=== PATIENT | male | born 1965 | race Caucasian/White ===

== ENCOUNTER → 2021-02-13 20:14 | Outpatient (CLI) | payer OTHER, SELFPAY | PROVIDERS: PCP Family Medicine; Visit Provider Family Medicine | DX: G47.10 Hypersomnia, unspecified (principal) | CPT/HCPCS: 95810 ==

== ENCOUNTER 2021-04-03 20:00 | Outpatient (CLI) | payer OTHER, SELFPAY | END 2021-04-03 23:59 | disposition short-term general hospital (02) | PROVIDERS: PCP Family Medicine; Referring Provider Family Medicine; Visit Provider Family Medicine | DX: G47.33 Obstructive sleep apnea (adult) (pediatric) (principal) | CPT/HCPCS: 95811 ==

== ENCOUNTER → 2021-07-16 | Outpatient (CLI) | payer OTHER, SELFPAY | END | disposition home or self-care (01) | LOC: SL 07-21 12:54 | PROVIDERS: PCP Family Medicine; Visit Provider Family Medicine | DX: Z00.00 Encounter for general adult medical examination without abnormal findings (principal) ==

== ENCOUNTER → 2021-09-22 | Outpatient (CLI) | payer OTHER, SELFPAY ==
[2021-09-22 12:17] LABS: Absolute Lymphocyte Count 1.72 X10^3/uL (0.83-4.51); Absolute Neutrophil Count 3.3 X10^3/uL (2.0-7.7); Basophil# 0.02 X10^3/uL; Basophil% 0.3 % (0-1); Eosinophil# 0.18 X10^3/uL; Eosinophils% 3.1 % (0-5); Hematocrit 39.4 % (40-54); Lymphocyte # 1.72 X10^3/ul (0.83-4.51); Lymphocyte % 29.8 % (19-41); Mean Corpuscular Hgb 30.2 pg (27.0-32.0); Mean Corpuscular Volume 91.6 fL (80-94); Mean Platelet Vol. 10.7 fl (6.2-12.0); Monocyte# 0.51 X10^3/uL; Monocyte% 8.8 % (0-10); NRBC Flagged by Analyzer 0 % (0-5); Neutrophil # 3.34 X10^3/uL (2.7-7.7); Neutrophil % 57.8 % (47-70); Platelet Count 237 K/mm3 (150-450); RBC Distribution Width CV 12.1 % (11.6-14.6); RBC Distribution Width SD 40.5 fl (35.1-43.9); White Blood Count 5.8 K/mm3 (4.4-11.0)
[2021-09-22 12:47] LABS: ALB/GLOB Ratio 1.3 RATIO (0.9-2.4); AST(SGOT) 15 U/L (15-37); Alanine Aminotransfer ALT/SGPT 26 U/L (16-61); Albumin, Serum 3.9 g/dL (3.2-5.0); Alkaline Phosphatase 99 U/L (45-117); Anion Gap 7 (5-15); BUN 15 mg/dL (7-18); BUN/Creat Ratio 16.6 RATIO (10-20); Calcium,Total 8.7 mg/dL (8.5-10.1); Chloride 107 mmol/L (98-107); Cholesterol 170 mg/dL (200); Creatinine, Serum 0.91 mg/dL (0.70-1.30); EST Glomerular Filtration Rate 92 mL/min (>60); Est Glom Filt Rate - Afr Amer 111 mL/min (>60); Globulin 3.1 g/dL (2.2-4.2); Glucose 99 mg/dL (74-106); High Density Lipoprotein 48 mg/dL; PSA,Total - Annual Screen 0.83 ng/mL (0.00-4.00); Potassium 3.6 mmol/L (3.5-5.1); Sodium Level 140 mmol/L (136-145); Triglycerides 55 mg/dL; Very Low Density Lipoprotein 11 mg/dL (5-40)
[2021-09-22 12:51] LABS: Microalbumin,Random Urine 82.8 mg/L (NO RANGE EST.); Microalbumin:Creatinine Ratio 62.7 mg/g CRE (<30 mg/g CRE)
== END | disposition home or self-care (01) ==
LOC: MTLAB 10:50
PROVIDERS: PCP Family Medicine; Referring Provider Family Medicine; Visit Provider Family Medicine
DX: Z00.00 Encounter for general adult medical examination without abnormal findings (principal); Z12.5 Encounter for screening for malignant neoplasm of prostate
CPT/HCPCS: 36415; 80053; 80061; 82043; 82570; 84153; 85025; G0103

== ENCOUNTER → 2021-12-08 | Outpatient (CLI) | payer OTHER, SELFPAY ==
--- NOTE | 2021-12-08 11:24 | RAD_ITS ---
STUDY: X-RAY - RIGHT HAND, ATTENTION FIRST FINGER REASON FOR EXAM: Male, 56 years old. Thumb pain. TECHNIQUE: 3 view(s) of the finger were obtained. COMPARISON: None. FINDINGS: Osteopenia. Mild arthrosis of the first CMC joint. Mild arthrosis of the MCP and IP joint. Soft tissue swelling over the distal phalanx. 3 mm in diameter soft tissue calcification on the radial side of the first digit adjacent to the distal aspect of the proximal phalanx. RAD/Finger(s) Min 2 Views IMPRESSION: Osteopenia with osteoarthritic changes. Small soft tissue calcification as described. No acute abnormality or erosive changes. Electronically Signed: Serg Jiang, at 13:59 EDT ,
== END | disposition home or self-care (01) ==
LOC: MTRAD 11:21
PROVIDERS: PCP Family Medicine; Referring Provider Family Medicine; Visit Provider Family Medicine
DX: M18.11 Unilateral primary osteoarthritis of first carpometacarpal joint, right hand (principal)
CPT/HCPCS: 73140

== ENCOUNTER → 2023-01-19 | Outpatient (CLI) | payer OTHER, SELFPAY ==
[2023-01-19 12:16] LABS: Absolute Lymphocyte Count 1.83 X10^3/uL (0.83-4.51); Absolute Neutrophil Count 3.3 X10^3/uL (2.0-7.7); Basophil# 0.05 X10^3/uL; Basophil% 0.8 % (0-1); Eosinophil# 0.16 X10^3/uL; Eosinophils% 2.7 % (0-5); Hematocrit 44.5 % (40-54); Hemoglobin 14.5 g/dL (13.0-16.5); Lymphocyte # 1.83 X10^3/ul (0.83-4.51); Lymphocyte % 30.7 % (19-41); Mean Corp Hgb Conc 32.6 g/dL (32-36); Mean Corpuscular Hgb 29.9 pg (27.0-32.0); Mean Corpuscular Volume 91.8 fL (80-94); Mean Platelet Vol. 10.9 fl (6.2-12.0); Monocyte# 0.58 X10^3/uL; Monocyte% 9.7 % (0-10); NRBC Flagged by Analyzer 0 % (0-5); Neutrophil # 3.33 X10^3/uL (2.7-7.7); Neutrophil % 55.8 % (47-70); Platelet Count 221 K/mm3 (150-450); RBC Distribution Width CV 12.7 % (11.6-14.6); RBC Distribution Width SD 42.5 fl (35.1-43.9); Red Blood Count 4.85 M/mm3 (4.6-6.2)
[2023-01-19 12:43] LABS: ALB/GLOB Ratio 1.1 RATIO (0.9-2.4); AST(SGOT) 12 U/L (15-37); Alanine Aminotransfer ALT/SGPT 23 U/L (16-61); Albumin, Serum 3.8 g/dL (3.2-5.0); Alkaline Phosphatase 129 U/L (45-117); Anion Gap 6 (5-15); BUN 16 mg/dL (7-18); BUN/Creat Ratio 17.9 RATIO (10-20); Calcium,Total 8.5 mg/dL (8.5-10.1); Chloride 108 mmol/L (98-107); Cholesterol 206 mg/dL (200); EST Glomerular Filtration Rate 92 mL/min (>60); Est Glom Filt Rate - Afr Amer 112 mL/min (>60); Globulin 3.5 g/dL (2.2-4.2); Glucose 103 mg/dL (74-106); High Density Lipoprotein 62 mg/dL; Magnesium 2.2 mg/dL (1.6-2.6); PSA,Total - Annual Screen 1.13 ng/mL (0.00-4.00); Potassium 3.6 mmol/L (3.5-5.1); Protein, Total 7.3 g/dL (6.4-8.2); Sodium Level 141 mmol/L (136-145); Thyroid Stim Hormone (TSH) 2.18 uIU/mL (0.358-3.74); Triglycerides 60 mg/dL; Very Low Density Lipoprotein 12 mg/dL (5-40)
== END | disposition home or self-care (01) ==
LOC: BFHLAB 10:28
PROVIDERS: PCP Family Medicine; Visit Provider Family Medicine
DX: Z00.00 Encounter for general adult medical examination without abnormal findings (principal); I48.91 Unspecified atrial fibrillation; Z12.5 Encounter for screening for malignant neoplasm of prostate
CPT/HCPCS: 36415; 80053; 80061; 83735; 84153; 84443; 85025; G0103

== ENCOUNTER → 2023-03-29 | Outpatient (CLI) | payer OTHER, SELFPAY ==
--- OUTSIDE RECORDS SUMMARY | 2023-03-29 15:20 | XMS RPT_ITS | CCD ---
Author Name Unknown Address [address] [place] [address] Organization [facility] Care Team Providers Care Gas System Operator Name Role Phone POLO GONZALEZ Unavailable Unavailable POLO GONZALEZ Unavailable Unavailable POLO GONZALEZ Unavailable Unavailable Problems Problem Classification Problem Date Documented Da te Episodic/Chronic Essential hypertension (1 source) Essential (primary) hypertension; Translations: [Essential (primary) hypertension] Onset: 02-25-2017 Chronic Results Test Name Value Interpretation Reference Range Facil ity Encounters Encounter Date Encounter Type Care Provider Facility Start: 02-25-2017 End: 02-25-2017 Ambulatory POLO GONZALEZ [facility] Payers Date Payer Category Payer Policy ID Unknown [id number] Progress note 09-02-2020 Note Date & Type Note Facility 09-02-2020 Note HNO ID: [id number] Author: RT Iram(R) Service: Radiology Author Type: Spindle Setter Type: Progress Notes Filed: 09/02/2020 2:11 PM Note Text: Radiology Service Progress Note PATIENT NAME: Antonio Hernadez DATE OF SERVICE: September 02, 2020 TIME: 2:11 PM PATIENT IDENTITY VERIFICATION COMPLETED USING TWO (2) IDENTIFIERS: Name and Date of confirmed by patient verbally. FALL SCREENING: Has the patient had 2 falls in the last year or 1 fall with injury or currently using an Ambulatory Assistive Device (Walker, Cane, Wheelchair, Crutches, etc.)? No PATIENT GENDER DATA: Male PATIENT RELEVANT IMPLANT DATA REVIEWED: Not Applicable RADIOLOGY DEPARTMENT: General X-ray: Exam(s) Completed: Spine X-Ray(s): Lumbar AP / LAT / L5-S1 Pelvis X-Ray: Pelvis with Hip Left PERIPHERAL IV DATA: Not applicable SIGNED BY: RT Iram(R) September 02, 2020 2:11 PM [facility] Progress note 09-02-2020 Note Date & Type Note Facility 09-02-2020 Note HNO ID: [id number] Author: Merrick Huerta APRN.VETERINARIAN ASSISTANT Service: ? Author Type: Nurse Practitioner Type: Progress Notes Filed: 09/08/2020 8:05 AM Note Text: CC: Patient presents with: Establish Care: Establishing Care HPI Antonio Hernadez is a 55 year old male who presents today to establish care. Previous PCP: Medical hx: HTN Specialist: Nephrology [phone] Complains of leg cramps since starting diuretic. Started in March by specialists- Pain is manageable until he developed left hip pain. Left hip- Can be severe enough that it wakes him from sleep. Pain radiates from hip sometimes to the ankle/foot. Difficulty with lifting the foot- notes having to concentrate with walking. Numbness to the top of the foot/ankle with occasional tingling. Improves with walking takes 2-3 hours first thing in the morning. Deep pain. Previously followed with chiropractor No known injury. No previous imaging. HTN: Checking BP at home: 127/86 89 prior to his appointment 130/83 74 last evening January follow up scheduled with nephrology Notes episodes where he feels he cannot catch his breath lasting up to 15 seconds. Occurring 3x per week. No cough, wheeze, chest pain or palpitations. Intermittent BLE edema. REVIEW OF SYSTEMS General: no fevers, no chills, no change in energy and no significant changes in weight HEENT: no frequent or significant headaches, no visual changes Respiratory: no cough, no wheezing, See HPI Cardiovascular: no chest pain, no chest pressure, no palpitations and See HPI GI: No nausea, vomiting. +intermittent diarrhea : No history of dysuria, frequency or incontinence Musculoskeletal: see HPI See HPI PAST MEDICAL HISTORY Diagnosis Date - Erectile dysfunction - HTN (hypertension) - Hyperkalemia - LVH (left ventricular hypertrophy) - Paroxysmal supraventricular tachycardia (HCC) No past surgical history on file. ALLERGIES Ciprofloxacin MEDICATIONS losartan (COZAAR) 100 mg tablet Take 100 mg by mouth once daily. carvedilol (COREG) 6.25 mg tablet Take 6.25 mg by mouth twice daily with meals. POTASSIUM CHLORIDE ORAL Take 20 mEq by mouth once daily. chlorthalidone (HYGROTON) 25 mg tablet Take 25 mg by mouth once daily. No family history on file. Social History Tobacco Use - Smoking status: Not on file Substance Use Topics - Alcohol use: Not on file - Drug use: Not on file PHYSICAL EXAM BP 142/98 Pulse 94 Temp 36.5 ?C (97.7 ?F) (Temporal) Resp 16 Wt 96.2 kg (212 lb) SpO2 98% General Appearance: well appearing, in no acute distress, alert Pysch: mood and affect flat and restricted Skin: Skin color, texture, turgor normal for age; Head: normocephalic, atraumatic Eyes: PERRLA, EOM's intact, conjunctiva pink and moist, no icterus, sclera white, non-injected Ears: external ears normal to inspection and palpation, canals clear, Left tympanic membrane normal. , Right tympanic membrane normal Lungs: Lungs clear to auscultation. No wheezing, rhonchi, rales. Heart: RRR without murmur, gallop, or rubs. No ectopy Abdomen: Abdomen soft, non-tender. Bowel sounds normal. No masses, organomegaly Bilateral Lower Extremities: no edema DEPRESSION SCREENING Never done COVID-19 VACCINE(1) Never done HEPATITIS C SCREENING Never done HIV SCREENING Never done DTAP,TDAP,TD(1 - Tdap) Never done LIPID SCREEN Never done DIABETES SCREEN Never done SHINGRIX VACCINE(1 of 2) Never done PROSTATE CANCER SCREENING DISCUSSION Never done INFLUENZA(Season Ended) due on 11/12/2020 COLORECTAL CANCER SCREENING due on 02/27/2023 MENINGOCOCCAL CONJUGATE Aged Out ASSESSMENT/PLAN: 1. Encounter for medical examination to establish care - ICD9: V70.9, ICD10: Z00.00 (primary diagnosis) - Recommended regular aerobic exercise. - Check labs as ordered - Follow up for annual exam in one year. 2. Leg cramps - ICD9: 729.82, ICD10: R25.2 - CBC + DIFF (FOR REMOTE [facility] USE) - TIBC PANEL (IRON) (FOR REMOTE [facility] USE) - FERRITIN (FERR) (FOR REMOTE [facility] USE) - MAGNESIUM (MG1) (FOR REMOTE [facility] USE) 3. Essential hypertension - ICD9: 401.9, ICD10: I10 - suboptimal control - Continue current medication(s) - Recommended regular aerobic exercise. - Recommend home blood pressure monitoring, to bring results in on next visit - Follow up in 1 month for BP recheck. - Goal of BP <130/80 - Recommended no refined sugar, low refined starch, healthy oil intake (olive oil), healthy protein (fish) along the lines of the Mediterranean diet. - BMP (BMP) (FOR REMOTE [facility] USE) - LIPID PANEL (LIPB) (FOR REMOTE [facility] USE) 4. Acute left-sided low back pain with left-sided sciatica - ICD9: 724.2, 724.3, ICD10: M54.42 - XR LUMBAR GENERAL 3V AP/LAT/L5-S1 5. Left hip pain - ICD9: 719.45, ICD10: M25.552 - XR HIP GENERAL 3V PELV/AP/LAT LT 6. Diarrhea, unspecified type - ICD9: 787.91, ICD10: R19.7 - BMP (BMP) (FOR REMOTE [facility] (more content not included)... [facility] Summary Purpose Family History No Family History Records FoundNo Family History Records FoundNo Family History Records Found Advance Directives No Advanced Directives Records FoundNo Advanced Directives Records FoundNo Advanced Directives Records Found Additional Source Comments (unrecognized sect ion and content) No Status Records FoundNo Status Records FoundNo Status Records Found INFORMATION SOURCE (unrecogn ized section and content) DATE CREATED AUTHOR AUTHOR'S ORGANIZ ATION 01/16/2020 [facility] DATE CREATED AUTHOR AUTHOR'S ORGANIZ ATION 04/15/2021 [facility] FOR RECORDS PERTAINING TO PATIENTS WHO ARE OR HAVE BEEN ENROLLED IN A CHEMICAL DEPENDENCY/SUBSTANCEABUSE PROGRAM, SOME INFORMATION MAY BE OMITTED. This clinical summary was aggregated from multiple sources. Caution should be exercised in using it in the provision of clinical care. This summary normalizes information from multiple sources, and as a consequence, information in this document may materially change the coding, format and clinical context of patient data. In addition, data may be omitted in some cases. CLINICAL DECISIONS SHOULD BE BASED ON THE PRIMARY CLINICAL RECORDS. [facility]. provides no warranty or guarantee of the accuracy or completeness of information in this document.
== END | disposition home or self-care (01) ==
LOC: PSN 13:39
PROVIDERS: PCP Family Medicine; Referring Provider Family Medicine; Visit Provider Family Medicine
DX: I48.91 Unspecified atrial fibrillation (principal)
CPT/HCPCS: 93225; 93226

== ENCOUNTER → 2023-06-09 | Outpatient (CLI) | payer OTHER, SELFPAY ==
--- NOTE | 2023-06-09 13:28 | STE_ITS ---
Reason For Study: Chest Pain Stress Results Protocol: Bubba Protocol Maximum Predicted HR: 161 bpm Target HR: 137 bpm % Maximum Predicted HR: 96 % DurationHeart Rate Stage (mm:ss) (bpm) BP Comment Baseline 69 146/78No Chest Pain Bubba Protocol Stage I 3:00 112 162/80No Chest Pain Bubba Protocol Stage II 3:00 125 174/82No Chest Pain Bubba Protocol Stage III 3:00 137 198/78Mild Chest Tightness Bubba Protocol Stage IV 1:00 155 / Mild Chest Tightness Recovery 99 146/78No Chest Pain Stress Duration: 10:00 mm:ss Maximum Stress HR: 155 bpm METS: 13 Baseline Echocardiogram Findings Stress Echo Wall motion Data Resting WM Intermediate WM Stress WM ECHO/Stress Test Echo w/o Contrast Interpretation Summary Exercise stress echo. 58-year-old man with a history of chest pain. Stress protocol: Resting EKG demonstrates normal sinus rhythm with a rate of 71 bpm normal inter vals are noted resting blood pressure is 146/78 mmHg. Patient exercised according to regular B ruce protocol for total duration of 10 minutes completing 1 minute into stage IV of the Bubba pro tocol the maximum heart rate attained was 155 bpm which was 96% of max impacted heart rate the [facility] workload was 13.3 metabolic equivalents. At rest there were no ST or T wave changes noted francois ggest ischemia and at peak exercise upsloping ST changes were noted we did not meet the criteria for ischemia. The peak blood pressure was 198/78 which was a good blood pressure response to exercise. Patient did experience minimal chest tightness at peak exercise which dissipated rapidly. Stress echocardiogram. The resting echocardiogram demonstrated ejection fraction of 60% no wall motion abnormalities were noted. At peak exercise there was thickening of all estrada with reduction of lef t ventricular cavity size and peaking of ejection fraction of 70% with no wall motion abnormalities present. Conclusion: Exercise stress echo with no EKG criteria for ischemia at a high workload. Excellent functional capacity. No echocardiographic criteria for ischemia. Ordering Physician: Andi Mann Referring Physician: Andi Mann Performed By: Maye Stein RCS
== END | disposition home or self-care (01) ==
LOC: CVS 13:27
PROVIDERS: PCP Family Medicine; Referring Provider Internal Medicine Cardiovascular Disease; Visit Provider Internal Medicine Cardiovascular Disease
DX: R07.9 Chest pain, unspecified (principal)
CPT/HCPCS: 93017; 93350

== ENCOUNTER → 2023-09-02 | Outpatient (CLI) | payer OTHER, SELFPAY ==
[2023-09-02 18:31] LABS: ALB/GLOB Ratio 1.2 RATIO (0.9-2.4); AST(SGOT) 17 U/L (15-37); Alanine Aminotransfer ALT/SGPT 25 U/L (16-61); Alkaline Phosphatase 118 U/L (45-117); Anion Gap 9 (5-15); BUN 14 mg/dL (7-18); Chloride 110 mmol/L (98-107); Cholesterol 188 mg/dL (200); Creatinine, Serum 0.93 mg/dL (0.70-1.30); EST Glomerular Filtration Rate 88 mL/min (>60); Est Glom Filt Rate - Afr Amer 107 mL/min (>60); Globulin 3.2 g/dL (2.2-4.2); Glucose 100 mg/dL (74-106); High Density Lipoprotein 56 mg/dL; Potassium 3.5 mmol/L (3.5-5.1); Protein, Total 7.2 g/dL (6.4-8.2); Sodium Level 142 mmol/L (136-145); Triglycerides 85 mg/dL; Very Low Density Lipoprotein 17 mg/dL (5-40)
== END | disposition home or self-care (01) ==
LOC: MTLAB 14:57
PROVIDERS: PCP Family Medicine; Referring Provider Family Medicine; Visit Provider Family Medicine
DX: I10 Essential (primary) hypertension (principal)
CPT/HCPCS: 36415; 80053; 80061

== ENCOUNTER 2023-12-01 07:55 | Day surgery (SDC) | payer OTHER, SELFPAY ==
[2023-12-01] VITALS (8 sets, daily range): BP systolic 123–164; BP diastolic 79–95; PULSE 16–68; RESP 16–20; TEMP 36.7–36.8; O2SAT 97–100; BMI 27.7
--- NOTE | 2023-12-01 08:22 | PCM.HP.STD ---
[facility] - General General Date of Admission: 12/01/23 Date of Service: 12/14/23 Chief Complaint: Screening colonoscopy HPI Narrative DREW WESTFALL, is a 58 M who presents today for screening colonoscopy. He has past medical history of hypertension which is controlled medications. He has not had any any abdominal pain, cramping, nausea, vomiting or diarrhea. He denies any chest pain or shortness of breath. Overall is in very good health. [facility] Medical History (Updated 11/29/23 @ 11:18 by Gloria Ellis) Wears glasses Arthritis Back pain Injury of head and neck Non-smoker CPAP (continuous positive airway pressure) dependence Sleep apnea Normal stress echocardiogram Hypertension Cardiology follow-up encounter Tinnitus of both ears PEACE (obstructive sleep apnea) Essential hypertension Atrial fibrillation Home Medications ?Medication ?Instructions ?Recorded ?Last Taken ?Type amlodipine 5 mg tablet 5 mg PO DAILY 04/22/23 12/01/23 History carvedilol 6.25 mg tablet 6.25 mg PO BID 04/22/23 12/01/23 History losartan 100 mg tablet 100 mg PO DAILY 04/22/23 12/01/23 History multivitamin 1 tab PO DAILY 04/22/23 Unknown History sour yi extract 1,000 mg 1,000 mg PO DAILY 04/22/23 Unknown History capsule (Tart Yi Extract) capsicum (cayenne) 450 mg capsule 450 mg PO DAILY 11/08/23 Unknown History Allergy/AdvReac Type Severity Reaction Status Date / Time ciprofloxacin Allergy Rash Verified 12/01/23 08:15 MARY Inhibitors AdvReac COUGH Verified 12/01/23 08:15 chlorthalidone AdvReac muscular sx Verified 12/01/23 08:15 hydrochlorothiazide (hctz) AdvReac muscular sx Verified 12/01/23 08:15 Family History Father Myocardial infarction Hx of CABG Mother CVA (cerebral vascular accident) Surgical History (Updated 11/29/23 @ 11:18 by Gloria Ellis) Hx of wisdom tooth extraction Hx of colonoscopy History of eye surgery Social History (Updated 11/08/23 @ 11:38 by Tash Momin) household members: spouse current occupational status: employed current occupation: [employer] Smoking Status: Never smoker alcohol intake: former substance use type: does not use caffeine: No ROS Review of Systems ROS Unobtainable: other Constitutional Constitutional: Denies fatigue, fever(s), poor appetite, weight gain or weight loss ENT HEENT: Denies mouth lesions Cardiovascular Cardiovascular: Denies abdominal bloating, abdominal edema or abdominal pain Respiratory/Chest Respiratory/Chest: Denies change in mental status, change in phlegm color, chest congestion or chest tightness Gastrointestinal Gastrointestinal: Denies belching, bloating, change in bowel habits, change in stool character, chewing difficulty, coffee ground emesis, constipation, cramping, diarrhea, dyspepsia, dysphagia, early satiety, excessive flatus, fecal incontinence, heartburn, hematemesis, hematochezia, hemorrhoids, loose stools, melena, nausea, odynophagia, rectal bleeding, tenesmus, vomiting or weight changes Genitourinary Genitourinary: Denies abdominal discomfort, burning urination or itching Musculoskeletal Musculoskeletal: Reports as per HPI; Denies muscle weakness or myalgias Integumentary Integumentary: Denies jaundice Neurologic Neurologic: Denies lack of coordination or weakness Psychiatric Psychiatric: Denies confusion, depression, memory loss, mood swings, paranoia or suicidal ideation Endocrine Endocrinology: Denies systems reviewed and no addt'l complaints, except as documented Hematologic/Lymphatic Hematologic/Lymphatic: Denies anemia, easy bleeding, easy bruising or lymphadenopathy Allergic/Immunologic Allergic/Immunologic: Denies systems reviewed and no addt'l complaints, except as documented Physical Exam Const alert General Appearance: cooperative Orientation / Consciousness: oriented to person HEENT hearing grossly normal bilaterally Head and Scalp: normal to inspection Face and Sinus: face symmetric Nose: external nose normal Mouth: oral and palatal mucosa normal Eyes conjunctivae normal General Eye: normal appearance of both eyes Neck full ROM General: normal visual inspection Lymph Lymphatic: no lymphadenopathy noted Chest inspection of chest normal and palpation of chest normal Chest: symmetrical chest wall rise Resp normal respiratory effort Effort and Inspection: able to speak in complete sentences Cardio regular rate GI non-distended Percussion: normal to percussion Rectal Exam: deferred Neuro Speech: speech normal Gait (Neuro): normal gait Assessment & Plan Assessment/Plan (1) Encounter for screening for malignant neoplasm of colon: PLAN: He was explained alternatives, risk, benefits include not withstanding bleeding, infection, sepsis, perforation, need for emergent surgery . He will have an ASA of 3.
[2023-12-01] MEDS: Lactated Ringers 1,000 ML 15 ML IV (08:24)
--- NOTE | 2023-12-01 08:56 | PCM.PRE.AN2 ---
ASA Classification* ASA Classification ASA Classification: 3 Assessment & Plan Anesthesia* Anesthesia Assessment Anesthesia Assessment: Discussed sedation and/or anesthesia options, risks, benefits, and alternatives with patient/parents/legal guardian/POA. Questions invited. The patient/parents/legal guardian/POA seems to understand and agrees to proceed with anesthesia plan. Reviewed the physical assessment, medical history, allergy history and patient home medications list prior to surgery/procedure/anesthetic and documented any changes. Performed airway and anesthesia risk assessments. Anesthesia Type Anesthesia Type: MAC (see written pre anesthesia record for full assessment) Anesthesia Focused Assessment* Temperature: 98.3 F Pulse Rate: 62 Blood Pressure: 164/95 Respiratory Rate: 16 Pulse Ox: 97 Airway Assessment Mouth opens: >3 cm Mallampati Score: II Focused Labs Anesthesia Preop lab: CBC WBC 6.0 K/mm3 (4.4-11.0) 01/19/23 10:28 RBC 4.85 M/mm3 (4.6-6.2) 01/19/23 10:28 Hgb 14.5 g/dL (13.0-16.5) 01/19/23 10:28 Hct 44.5 % (40-54) 01/19/23 10:28 Plt Count 221 K/mm3 (150-450) 01/19/23 10:28 CHEMISTRY Potassium 3.5 mmol/L (3.5-5.1) 09/02/23 15:02 Sodium 142 mmol/L (136-145) 09/02/23 15:02 Magnesium 2.2 mg/dL (1.6-2.6) 01/19/23 10:28 BUN 14 mg/dL (7-18) 09/02/23 15:02 Creatinine 0.93 mg/dL (0.70-1.30) 09/02/23 15:02 Glucose 100 mg/dL (74-106) 09/02/23 15:02 TSH 2.18 uIU/mL (0.358-3.74) 01/19/23 10:28 COAG Pre-Assessment Diagnosis/Proposed Procedure Planned Operative Procedure(s): COLONOSCOPY-OA Anesthesia History 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 When Was Last Pacemaker Check QUESTION #4 FULL TEXT: You/Your Family Experience fever (hyperthermia) with Anesthesia Last Oral Intake Last Oral intake: Last Oral Intake NPO since 05:45 12/01/23 08:25 Meds taken in AM with sips of Yes 12/01/23 08:25 water? Meds patient instructed to take am of surgery PONV PONV - electrical technician instructor: PONV - electrical technician instructor Female No 11/29/23 11:18 HX of Motion Sickness No 11/29/23 11:18 HX of N/V After Surgery No 11/29/23 11:18 Non-Smoker Yes 11/29/23 11:18 Duration of Surgery greater No 11/29/23 11:18 than 60 minutes Number of Risk Factors 1 11/29/23 11:18 PONV Score Low Risk 11/29/23 11:18 Height & Weight Height & Weight: Anesthesia: Height & Weight Height 6 ft 2 in 12/01/23 08:25 Weight: 98 kg 12/01/23 08:25 Body Mass Index (BMI) 27.7 12/01/23 08:25 Respiratory Assessment Respiratory Assessment - electrical technician instructor: Respiratory Tract Infection Hx - electrical technician instructor Hx Respiratory Tract Infection No 11/29/23 11:18 STOP Sleep Apnea STOP Sleep Apnea - electrical technician instructor: STOP Sleep Apnea - electrical technician instructor Hx Hypertension Yes: CONTROLLED ON MED 11/29/23 11:18 Hx Sleep Apnea Yes 11/29/23 11:18 CPAP Yes 11/29/23 11:18 BIPAP No 11/29/23 11:18 Do you snore loudly (louder than talking or can be heard Do you often feel tired/ fatigued/ sleepy during daytime? Has anyone observed you stop breathing during sleep? STOP Results Positive 11/29/23 11:18 QUESTION #5 FULL TEXT : Do you snore loudly (louder than talking or can be heard through closed doors)? 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 Specify any problems Hx of Preganancy in last 3 N/A 11/29/23 11:18 Months Nurse Filling Out Transfusion VCHRISTIN 11/29/23 11:18 & Questions: Date: 11/29/23 11/29/23 11:18 Time: 11:19 11/29/23 11:18 Patient unable to answer at this time (ie. confused, unrespo /Reproduction History /Reproductive History - electrical technician instructor: /Reproductive Hx- electrical technician instructor Hx Now Gestational Age (in weeks): EDC: Hx Hx Para Hx Section SAB Active Medications Active Medications: Current Medications Generic Name Dose Route Start Last Admin Trade Name Freq PRN Reason Stop Dose Admin Lactated Ringer's 1,000 mls @ 15 mls/hr 12/01/23 08:15 12/01/23 08:24 IV 15 mls/hr .Q48H JOHANNA Administration PFSH Medical History Wears glasses Arthritis Back pain Injury of head and neck Non-smoker CPAP (continuous positive airway pressure) dependence Sleep apnea Normal stress echocardiogram Hypertension Cardiology follow-up encounter Tinnitus of both ears PEACE (obstructive sleep apnea) Essential hypertension Atrial fibrillation Home Medications ?Medication ?Instructions ?Recorded ?Last Taken ?Type amlodipine 5 mg tablet 5 mg PO DAILY 04/22/23 12/01/23 History carvedilol 6.25 mg tablet 6.25 mg PO BID 04/22/23 12/01/23 History losartan 100 mg tablet 100 mg PO DAILY 04/22/23 12/01/23 History multivitamin 1 tab PO DAILY 04/22/23 Unknown History sour yi extract 1,000 mg 1,000 mg PO DAILY 04/22/23 Unknown History capsule (Tart Yi Extract) capsicum (cayenne) 450 mg capsule 450 mg PO DAILY 11/08/23 Unknown History Allergy/AdvReac Type Severity Reaction Status Date / Time ciprofloxacin Allergy Rash Verified 12/01/23 08:15 MARY Inhibitors AdvReac COUGH Verified 12/01/23 08:15 chlorthalidone AdvReac muscular sx Verified 12/01/23 08:15 hydrochlorothiazide (hctz) AdvReac muscular sx Verified 12/01/23 08:15 Family History Father Myocardial infarction Hx of CABG Mother CVA (cerebral vascular accident) Surgical History Hx of wisdom tooth extraction Hx of colonoscopy History of eye surgery Social History household members: spouse current occupational status: employed current occupation: [employer] Smoking Status: Never smoker alcohol intake: former substance use type: does not use caffeine: No Review of Systems (Anesthesia) ROS Narrative System reviewed and no additional complaints, except as documented.
--- NOTE | 2023-12-01 09:00 | COLBX_PTH ---
PATIENT: DREW WESTFALL LOC: EN U#:[id number] AGE/SX: 58/M ROOM: RE12/01/[address]: Dr. Modesto Bowers DO : 1965 BED: DIS: 12/01/2023 SPEC #: [id number] RECD: 12/01/23 11:26 STATUS: DONOVAN EARLINE #: [id number] MARYURI: 12/01/23 09:[address]: Modesto Bowers DEPT: SURGICAL PATHOLOGY RECD BY: Bayron Gar ENTERED: 12/01/23 14:05 SP TYPE: COLON BX OTHR DR: Dr. Kvng Coon DO Tissues: COLON BIOPSY Procedures: Surgery Specimen Level IV HEADER OPERATION: Colonoscopy, polypectomy PRE-OP DIAGNOSIS: Encounter for screening for malignant neoplasm of colon TISSUE SUBMITTED: Hepatic flexure polyp MICROSCOPIC DIAGNOSIS Colonic polyp at hepatic flexure, biopsy: Fragments of benign colonic mucosa. See comment. AM.mr 12/02/2023 COMMENT Neither hyperplastic nor adenomatous change is identified. Clinical correlation is suggested. MICROSCOPIC DESCRIPTION Slides are reviewed. GROSS DESCRIPTION Received in fixative is one container labeled with the patient's name and designated Hepatic flexure polyp. The specimen consists of multiple minute fragments of light moreno soft tissue that in aggregate measure 0.3 x 0.1 x <0.1 cm. The specimen is totally submitted in one cassette. 12/01/2023 TC:5 CPT:68081
--- NOTE | 2023-12-01 09:24 | OP.CCLET_ITS ---
12/01/2023 K[address] Coon [address] [place] [address] Re : Colonoscopy procedure for Antonio Hernadez Dear Dr. Coon This procedure was performed on November. My impressions and recommendations are as follows: Impressions : - One 8 mm polyp at the hepatic flexure, removed with a cold snare. Resected and retrieved. - The examination was otherwise normal on direct and retroflexion views. Recommendations : - Patient has a contact number available for emergencies. The signs and symptoms of potential delayed complications were discussed with the patient. Return to normal activities tomorrow. Written discharge instructions were provided to the patient. - Resume previous diet. - Continue present medications. - Await pathology results. - Repeat colonoscopy in 5 years for surveillance. My findings are described in the full procedure note, which is enclosed. If I can be of further assistance, please feel free to contact me at . Sincerely, Modesto Bowers, 12/01/2023 9:23:46 AM This report has been signed electronically.
--- NOTE | 2023-12-01 09:24 | OP.COLON_ITS ---
Patient Name: Antonio Hernadez Procedure Date: 12/01/2023 8:52 AM Date of : 1965 Age: 58 Procedure: Colonoscopy Indications: Screening for colorectal malignant neoplasm Providers: Modesto Bowers DO Medicines: Monitored Anesthesia Care Patient Profile: This is a 58 year old male. Refer to note in patient chart for documentation of history and physical. Last Colonoscopy: more than 10 years ago. Complications: No immediate complications. Procedure: Pre-Anesthesia Assessment: - Prior to the procedure, a History and Physical was performed, and patient medications and allergies were reviewed. The patient is competent. The risks and benefits of the procedure and the sedation options and risks were discussed with the patient. All questions were answered and informed consent was obtained. Patient identification and proposed procedure were verified by the physician in the pre-procedure area. Mental Status Examination: alert and oriented. Airway Examination: normal oropharyngeal airway and neck mobility. Respiratory Examination: clear to auscultation. CV Examination: normal. Prophylactic Antibiotics: The patient does not require prophylactic antibiotics. Prior Anticoagulants: The patient has taken no anticoagulant or antiplatelet agents except for NSAID medication. ASA Grade Assessment: II - A patient with mild systemic disease. After reviewing the risks and benefits, the patient was deemed in satisfactory condition to undergo the procedure. The anesthesia plan was to use monitored anesthesia care (MAC). Immediately prior to administration of medications, the patient was re-assessed for adequacy to receive sedatives. The heart rate, respiratory rate, oxygen saturations, blood pressure, adequacy of pulmonary ventilation, and response to care were monitored throughout the procedure. The physical status of the patient was re-assessed after the procedure. After I obtained informed consent, the scope was passed under direct vision. Throughout the procedure, the patient's blood pressure, pulse, and oxygen saturations were monitored continuously. The Colonoscope was introduced through the anus and advanced to the cecum, identified by appendiceal orifice and ileocecal valve. The colonoscopy was performed without difficulty. The patient tolerated the procedure well. The quality of the bowel preparation was adequate. The ileocecal valve, appendiceal orifice, and rectum were photographed. Scope In: 9:01:28 AM Scope Withdrawal Time 0 hours 10 minutes 38 seconds Scope Out: 9:18:40 AM Total Procedure Duration Time 0 hours 17 minutes 12 seconds Findings: The perianal and digital rectal examinations were normal. An 8 mm polyp was found in the hepatic flexure. The polyp was sessile. The polyp was removed with a cold snare. Resection and retrieval were complete. Verification of patient identification for the specimen was done. Estimated blood loss was minimal. The exam was otherwise without abnormality on direct and retroflexion views. Impression: - One 8 mm polyp at the hepatic flexure, removed with a cold snare. Resected and retrieved. - The examination was otherwise normal on direct and retroflexion views. Recommendation: - Patient has a contact number available for emergencies. The signs and symptoms of potential delayed complications were discussed with the patient. Return to normal activities tomorrow. Written discharge instructions were provided to the patient. - Resume previous diet. - Continue present medications. - Await pathology results. - Repeat colonoscopy in 5 years for surveillance. Procedure Code(s): --- Professional --- 71919, Colonoscopy, flexible; with removal of tumor(s), polyp(s), or other lesion(s) by snare technique CPT copyright 2021 [employer]. All rights reserved. The codes documented in this report are preliminary and upon foreign language interpreter review may be revised to meet current compliance requirements. Modesto Bowers DO 12/01/2023 9:23:46 AM This report has been signed electronically. Number of Addenda: 0 Note Initiated On: 12/01/2023 8:52 AM
--- NOTE | 2023-12-01 09:30 | PCM.POST.ANE ---
Anesthesia: Postop Eval I Current Vital Signs Temperature: 98.2 F Pulse Rate: 16 Blood Pressure: 130/79 Respiratory Rate: 16 Pulse Ox: 100 Oxygen Delivery Method: Room Air Assessment Airway patent: Yes Spontaneous unlabored respirations: Yes Mental status: Asleep nausea: No Vomiting: No Anesthesia Complication: No Fluid Hydration Crystalloid volume administer (ml): 600 Total IV fluid infused: 600 Progress Note Anesthesia document: Postop Eval 1 completed: Yes
--- NOTE | 2023-12-01 10:21 | PCM.POSTANE2 ---
Anesthesia Postop Eval I Sum Postop Eval Completion status Anesthesia document: Postop Eval 1 completed: Yes Anesthesia Postop Eval I Summary Anesthesia Postop Eval I Summary: Anesthesia Postop Eval I: Assessment Summary Airway patent Yes 12/01/23 09:31 [email or web address] Spontaneous unlabored Yes 12/01/23 09:31 [email or web address] respirations Mental status Asleep 12/01/23 09:31 [email or web address] nausea No 12/01/23 09:31 [email or web address] Vomiting No 12/01/23 09:31 [email or web address] Anesthesia Postop Eval I: Fluid Summary Crystalloid volume administer 600 12/01/23 09:31 [email or web address] (ml) Colloids volume administered ( ml) Blood Product volume administered (ml) Total IV fluid infused 600 12/01/23 09:31 [email or web address] Anesthesia Postop Eval I: Summary Notes Anesthesia Complication No 12/01/23 09:31 [email or web address] Anesthesia Complication Comment: Post-operative progress note Anesthesia: Postop Eval II Evaluation Mental status: Awake Pain Level: 0 nausea: No Vomiting: No
== END 2023-12-01 09:59 | disposition home or self-care (01) ==
LOC: EN 07:56 → AC 07:57
PROVIDERS: PCP Family Medicine; Referring Provider Family Medicine; Visit Provider Internal Medicine Gastroenterology
PROC: 0DJD8ZZ Inspection of Lower Intestinal Tract, Via Natural or Artificial Opening Endoscopic (ICD-10-PCS; CPT 45378; principal; 2023-12-01 08:55)
DX: Z12.11 Encounter for screening for malignant neoplasm of colon (principal); D12.3 Benign neoplasm of transverse colon; I10 Essential (primary) hypertension; G47.33 Obstructive sleep apnea (adult) (pediatric); Z79.899 Other long term (current) drug therapy
CPT/HCPCS: 45385; 88305; J7120; J2405

== ENCOUNTER → 2024-03-02 | Outpatient (CLI) | payer OTHER, SELFPAY ==
[2024-03-02 18:02] LABS: PSA,Total - Annual Screen 1.25 ng/mL (0.00-4.00)
== END | disposition home or self-care (01) ==
LOC: BFHLAB 15:45
PROVIDERS: PCP Family Medicine; Visit Provider Family Medicine
DX: Z12.5 Encounter for screening for malignant neoplasm of prostate (principal)
CPT/HCPCS: 36415; 84153; G0103

== ENCOUNTER → 2024-11-01 | Outpatient (CLI) | payer OTHER, SELFPAY ==
[2024-11-01 17:53] LABS: Hematocrit 43.8 % (40-54); Hemoglobin 14.9 g/dL (13.0-16.5); Immature Granulocytes Count 0.010 X10^3/uL (0.0-0.0); Mean Corp Hgb Conc 34.0 g/dL (32-36); Mean Corpuscular Volume 88.7 fL (80-94); Mean Platelet Vol. 10.7 fl (6.2-12.0); NRBC Flagged by Analyzer 0 % (0-5); Platelet Count 226 K/mm3 (150-450); RBC Distribution Width CV 12.3 % (11.6-14.6); RBC Distribution Width SD 39.8 fl (35.1-43.9); Red Blood Count 4.94 M/mm3 (4.6-6.2); White Blood Count 5.4 K/mm3 (4.4-11.0)
[2024-11-01 18:34] LABS: AST(SGOT) 20 U/L (<=37); Alanine Aminotransfer ALT/SGPT 17 U/L (<=46); Albumin, Serum 4.5 g/dL (3.4-4.8); Alkaline Phosphatase 127 U/L (40-129); Anion Gap 14 (5-15); BUN 15 mg/dL (4-19); BUN/Creat Ratio 15.2 RATIO (10-20); Calcium,Total 9.3 mg/dL (7.6-11.0); Carbon Dioxide 21.2 mmol/L (21.0-32.0); Chloride 106 mmol/L (98-108); Cholesterol 198 mg/dL (<=200); Globulin 2.8 g/dL (2.2-4.2); Glucose 91 mg/dL (70-99); Low Density Lipoprotein Calc. 125 mg/dL; Potassium 3.5 mmol/L (3.3-5.1); Triglycerides 80 mg/dL; Very Low Density Lipoprotein 16 mg/dL (5-40); cholesterol:hdl ratio screen 3.46
== END | disposition home or self-care (01) ==
LOC: BFHLAB 15:46
PROVIDERS: PCP Family Medicine; Visit Provider Family Medicine
DX: Z00.00 Encounter for general adult medical examination without abnormal findings (principal)
CPT/HCPCS: 36415; 80053; 80061; 85025